=== PATIENT | male | born 1985 | race African-American/Black ===

== ENCOUNTER 2016-12-05 19:04 | Emergency (ER) | payer OTHER ==
[~2016-12-05] VITALS: Ht 188 cm; Wt 102.0 kg
[~2016-12-05 19:04] MED LIST: DILANTIN
[2016-12-06] MEDS ORDERED: BACITRACIN ZINC OINT UDPKT TOP ONE (03:15)
[2016-12-06] MEDS ORDERED: HYDROCODONE/ACETAMINOPHEN 5/325MG TABLET PO ONE (04:15)
[2016-12-06 04:50] VITALS: BP 115/68
== END 2016-12-06 04:52 | disposition home or self-care (01) ==
LOC: ER 19:04
DX: L02.611 Cutaneous abscess of right foot (principal); F12.10 Cannabis abuse, uncomplicated
CPT/HCPCS: 10060; 99283; Z7610

== ENCOUNTER 2017-12-18 00:29 | Emergency (ER) | payer MEDICAID, OTHER ==
[~2017-12-18] VITALS: Ht 185.4 cm; Wt 91.0 kg
[2017-12-18] MEDS ORDERED: BACITRACIN ZINC OINT UDPKT TOP ONE (02:15)
[2017-12-18] MEDS ORDERED: LIDOCAINE HCL/PF 1% 10 MG/ML 5ML VIAL IJ ONE (02:15)
[2017-12-18] MEDS ORDERED: TETANUS, DIPHTHERIA, PERTUSSIS VAC/PF 0.5ML (>7YR OLD) IM ONE (02:15)
[2017-12-18] MEDS ORDERED: LIDOCAINE HCL/PF 1% 10 MG/ML 5ML VIAL IJ NR (02:30)
[2017-12-18 03:42] VITALS: BP 129/85
== END 2017-12-18 03:43 | disposition home or self-care (01) ==
LOC: ER 00:59
DX: S51.811A Laceration without foreign body of right forearm, initial encounter (principal); W22.8XXA Striking against or struck by other objects, initial encounter; Y93.89 Activity, other specified; Y92.89 Other specified places as the place of occurrence of the external cause; Y99.8 Other external cause status
CPT/HCPCS: 12002; 90471; 90715; 99283; J3490; Z7610

== ENCOUNTER 2018-01-23 16:27 | Emergency (ER) | payer MEDICAID ==
[~2018-01-23] VITALS: Ht 185.4 cm; Wt 92.0 kg
[2018-01-23] MEDS ORDERED: KETOROLAC 60MG/2ML VIAL IM ONE (17:30)
[2018-01-23] MEDS ORDERED: HYDROCODONE/ACETAMINOPHEN 5/325MG TABLET PO ONE (18:30)
[2018-01-23 19:17] VITALS: BP 156/88
== END 2018-01-23 19:19 | disposition left against medical advice (07) ==
LOC: ER 16:27
DX: S63.266A Dislocation of metacarpophalangeal joint of right little finger, initial encounter (principal); S52.611G Displaced fracture of right ulna styloid process, subsequent encounter for closed fracture with delayed healing; S62.29 Other fracture of first metacarpal bone; W22.09XA Striking against other stationary object, initial encounter; Y93.89 Activity, other specified; Y92.9 Unspecified place or not applicable
CPT/HCPCS: 73110; 73130; 73200; 96372; 99284; J1885

== ENCOUNTER 2018-06-15 18:41 | Emergency (ER) | payer MEDICAID | END 2018-06-15 23:08 | disposition left against medical advice (07) | LOC: ER 18:41 | DX: R11.2 Nausea with vomiting, unspecified (principal); Z53.21 Procedure and treatment not carried out due to patient leaving prior to being seen by health care provider ==

== ENCOUNTER 2022-08-15 05:19 | Emergency (ER) | payer SELFPAY ==
[~2022-08-15] VITALS: Ht 188 cm; Wt 102.0 kg
[2022-08-15] MEDS ORDERED: CEPH500T MT (09:28)
[2022-08-15] MEDS ORDERED: IBUPROFEN 600MG TABLET PO ONE (09:30)
[2022-08-15] MEDS ORDERED: CEPHALEXIN 250MG CAPSULE PO ONE (10:15)
[2022-08-15 10:17] VITALS: BP 127/79
== END 2022-08-15 10:19 | disposition home or self-care (01) ==
LOC: ER 05:19
DX: L03.116 Cellulitis of left lower limb (principal)
CPT/HCPCS: 73590; 93971; 99284

== ENCOUNTER 2022-09-11 22:27 | Emergency (ER) | payer MEDICAID ==
[~2022-09-11] VITALS: Ht 177.8 cm; Wt 73.0 kg
[~2022-09-11 22:27] MED LIST changes: +CEPH500T MT
[2022-09-11 22:33] VITALS: BP 133/75
[2022-09-12] MEDS ORDERED: KETOROLAC 60MG/2ML VIAL IM ONE (00:45)
[2022-09-12] MEDS ORDERED: IBUPROFEN 600MG TABLET PO NR (14:30)
== END 2022-09-12 14:21 | disposition admitted as inpatient to this hospital (09) ==
LOC: ER 22:27 → EDBEDREQ 09-12 07:48 → CANBEDREQ 09-12 13:31 → ER 09-12 14:21
DX: M79.662 Pain in left lower leg (principal)
CPT/HCPCS: 96372; 99283; J1885; Z7610

== ENCOUNTER 2022-09-18 06:16 | Emergency (ER) | payer MEDICAID ==
[~2022-09-18] VITALS: Ht 182.9 cm; Wt 106.0 kg
[2022-09-18 06:18] VITALS: BP 128/79; RESP 18; TEMP 98.6; O2SAT 100
[2022-09-18 06:19] VITALS: PULSE 99
== END 2022-09-18 08:48 | disposition home or self-care (01) ==
LOC: ER 06:16
DX: Z48.00 Encounter for change or removal of nonsurgical wound dressing (principal)
CPT/HCPCS: 99281

== ENCOUNTER 2022-09-18 08:42 | Emergency (ER) | payer MEDICAID ==
[~2022-09-18] VITALS: Ht 188 cm; Wt 105.0 kg
[2022-09-18 09:13] VITALS: BP 126/78; PULSE 79; RESP 18; TEMP 98.2
== END 2022-09-18 12:39 | disposition home or self-care (01) ==
LOC: ER 08:42
DX: Z48.00 Encounter for change or removal of nonsurgical wound dressing (principal)
CPT/HCPCS: 99281